=== PATIENT | female | born 1995 | race Caucasian/White ===

== ENCOUNTER 2017-08-06 06:29 | Emergency (ER) | payer BC ==
[~2017-08-06 06:29] MED LIST: CITA-145 PO
[2017-08-06] MEDS ORDERED: MINO100C27 PO (06:41)
--- NOTE | 2017-08-06 07:15 | ER Report ---
History and Physical Time Seen By MD: 06:45 Hx. of Stated Complaint: PT REPORTS LOW ABDOMINAL PAIN STARTING LATE LAST NIGHT, BRIGHT RED BLOOD IN LOOSE STOOLS X2 HPI/ROS CHIEF COMPLAINT: Lower abdominal pain rectal bleeding HISTORY OF PRESENT ILLNESS: Otherwise healthy 22-year-old female in no medication stated that last evening she noted there was some redness in her stool with associated abdominal cramping she had no vomiting pain is generally in the lower abdominal area no recent travel no recent new foods no recent exposure to foreign pathogens that she is aware of. Patient states that she went to bed booklets when he had a 2nd episode was some blood-tinged stool as well on arrival to the emergency department she is completely asymptomatic she is denying abdominal pain no urinary bladder bowel incontinence and numbness of subtle paresthesias patient denies any recent surgical procedures patient has no significant history only takes benzodiazepines for associated depression otherwise unremarkable past medical history REVIEW OF SYSTEMS: Respiratory: No cough, no dyspnea. Cardiovascular: No chest pain, no palpitations. Gastrointestinal: Abdominal cramping with associated blood in the stool Musculoskeletal: No back pain. Remainder of the 14 system rev: Yes Allergies: Coded Allergies: No Known Drug Allergies (Unverified , 04/13/15) Home Meds Reported Medications Minocycline Hcl (MINOCYCLINE HCL) 100 Mg Capsule, 100 MG PO BID, CAPSULE 08/06/17 Citalopram Hydrobromide (CITALOPRAM HBR) 20 Mg Tablet, 10 MG PO QDAY, #5 TAB 04/03/15 Reviewed Nurses Notes: Yes Old Medical Records Reviewed: Yes Hx Smoking: No Smoking Status: Never Smoker Exposure to Second Hand Smoke?: No Hx Substance Use Disorder: No Hx Alcohol Use: Yes (1X WEEK) Constitutional Vital Sign - Last 24 Hours 08/06/17 06:34 Temp 98.4 Pulse 81 Resp 16 B/P (MAP) 156/91 Pulse Ox 94 O2 Delivery Room Air Physical Exam General Appearance: The patient is alert, has no immediate need for airway protection and no current signs of toxicity. [ ] Eyes: Pupils equal and round no injection. Respiratory: Chest is non tender, lungs are clear to auscultation. Cardiac: regular rate and rhythm [ ] Gastrointestinal: Abdomen is soft and non tender, no masses, bowel sounds normal. Musculoskeletal: Neck: Neck is supple and non tender. Extremities have full range of motion and are non tender. Skin: No rashes or lesions. Rectal exam no sign of fissures no sign of blood in or around the rectal area negative on pulmonary examination Hemoccult sent DIFFERENTIAL DIAGNOSIS: After history and physical exam differential diagnosis was considered for enteritis gastroenteritis viral enteritis Medical Decision Making Data Points Result Diagram: 08/06/17 0642 08/06/17 0642 Laboratory Hematology Test 08/06/17 06:36 08/06/17 06:42 08/06/17 07:08 Urine Color Yellow Urine Clarity Slightly-cloudy Urine pH 5.0 pH (4.8-9.5) Urine Specific [place] 1.019 Urine Protein Negative mg/dL (NEGATIVE) Urine Glucose (UA) Negative mg/dL (NEGATIVE) Urine Ketones Negative mg/dL (NEGATIVE) Urine Blood Moderate (NEGATIVE) Urine Nitrite Negative (NEGATIVE) Urine Bilirubin Negative (NEGATIVE) Urine Urobilinogen Negative mg/dL (0.2-1.9) Urine Leukocyte Esterase Trace (NEGATIVE) Urine RBC 1 /HPF (0-2/HPF) Urine WBC 7 /HPF (0-5/HPF) Urine Squamous Epithelial Cells Many /LPF (</=FEW) Urine Transitional Epithelial Cells Few /LPF (NONE-FEW) Urine Bacteria Moderate /HPF (NONE-FEW) Urine Mucus Few /HPF (NONE-FEW) Red Blood Count 5.76 M/uL (4.17-5.56) Mean Corpuscular Volume 84.0 fL (80.0-96.0) Mean Corpuscular Hemoglobin 29.1 pg (26.0-33.0) Mean Corpuscular Hemoglobin Concent 34.6 g/dL (32.0-36.0) Red Cell Distribution Width 13.5 % (11.5-14.5) Mean Platelet Volume 7.1 fL (7.2-11.1) Neutrophils (%) (Auto) 74.1 % (39.4-72.5) Lymphocytes (%) (Auto) 14.4 % (17.6-49.6) Monocytes (%) (Auto) 8.4 % (4.1-12.4) Eosinophils (%) (Auto) 2.4 % (0.4-6.7) Basophils (%) (Auto) 0.7 % (0.3-1.4) Nucleated RBC Relative Count (auto) 0.1 /100WBC Neutrophils # (Auto) 6.0 K/uL (2.0-7.4) Lymphocytes # (Auto) 1.2 K/uL (1.3-3.6) Monocytes # (Auto) 0.7 K/uL (0.3-1.0) Eosinophils # (Auto) 0.2 K/uL (0.0-0.5) Basophils # (Auto) 0.1 K/uL (0.0-0.1) Nucleated RBC Absolute Count (auto) 0.01 K/uL Prothrombin Time 13.8 seconds (12.0-14.4) Prothromb Time International Ratio 1.06 Sodium Level 138 mmol/L (137-145) Potassium Level 3.7 mmol/L (3.5-5.0) Chloride Level 105 mmol/L (98-107) Carbon Dioxide Level 21 mmol/L (22-31) Blood Urea Nitrogen 10 mg/dl (7-18) Creatinine 0.80 mg/dl (0.52-1.04) Glomerular Filtration Rate Calc > 60.0 Random Glucose 100 mg/dl (75-110) Calcium Level 9.0 mg/dl (8.4-10.2) Total Bilirubin 1.0 mg/dl (0.2-1.3) Aspartate Amino Transf (AST/SGOT) 49 U/L (0-35) Alanine Aminotransferase (ALT/SGPT) 34 U/L (0-56) Alkaline Phosphatase 65 U/L (0-126) Total Protein 6.5 gm/dl (6.3-8.2) Albumin 3.9 g/dl (3.5-5.0) Serum Alcohol < 10 mg/dl Stool Occult Blood (IFOB) Negative (NEGATIVE) Chemistry Test 08/06/17 06:36 08/06/17 06:42 08/06/17 07:08 Urine Color Yellow Urine Clarity Slightly-cloudy Urine pH 5.0 pH (4.8-9.5) Urine Specific [place] 1.019 Urine Protein Negative mg/dL (NEGATIVE) Urine Glucose (UA) Negative mg/dL (NEGATIVE) Urine Ketones Negative mg/dL (NEGATIVE) Urine Blood Moderate (NEGATIVE) Urine Nitrite Negative (NEGATIVE) Urine Bilirubin Negative (NEGATIVE) Urine Urobilinogen Negative mg/dL (0.2-1.9) Urine Leukocyte Esterase Trace (NEGATIVE) Urine RBC 1 /HPF (0-2/HPF) Urine WBC 7 /HPF (0-5/HPF) Urine Squamous Epithelial Cells Many /LPF (</=FEW) Urine Transitional Epithelial Cells Few /LPF (NONE-FEW) Urine Bacteria Moderate /HPF (NONE-FEW) Urine Mucus Few /HPF (NONE-FEW) White Blood Count 8.1 k/uL (4.5-11.0) Red Blood Count 5.76 M/uL (4.17-5.56) Hemoglobin 16.7 g/dL (12.0-16.0) Hematocrit 48.4 % (34.0-47.0) Mean Corpuscular Volume 84.0 fL (80.0-96.0) Mean Corpuscular Hemoglobin 29.1 pg (26.0-33.0) Mean Corpuscular Hemoglobin Concent 34.6 g/dL (32.0-36.0) Red Cell Distribution Width 13.5 % (11.5-14.5) Platelet Count 362 K/uL (150-450) Mean Platelet Volume 7.1 fL (7.2-11.1) Neutrophils (%) (Auto) 74.1 % (39.4-72.5) Lymphocytes (%) (Auto) 14.4 % (17.6-49.6) Monocytes (%) (Auto) 8.4 % (4.1-12.4) Eosinophils (%) (Auto) 2.4 % (0.4-6.7) Basophils (%) (Auto) 0.7 % (0.3-1.4) Nucleated RBC Relative Count (auto) 0.1 /100WBC Neutrophils # (Auto) 6.0 K/uL (2.0-7.4) Lymphocytes # (Auto) 1.2 K/uL (1.3-3.6) Monocytes # (Auto) 0.7 K/uL (0.3-1.0) Eosinophils # (Auto) 0.2 K/uL (0.0-0.5) Basophils # (Auto) 0.1 K/uL (0.0-0.1) Nucleated RBC Absolute Count (auto) 0.01 K/uL Prothrombin Time 13.8 seconds (12.0-14.4) Prothromb Time International Ratio 1.06 Glomerular Filtration Rate Calc > 60.0 Calcium Level 9.0 mg/dl (8.4-10.2) Total Bilirubin 1.0 mg/dl (0.2-1.3) Aspartate Amino Transf (AST/SGOT) 49 U/L (0-35) Alanine Aminotransferase (ALT/SGPT) 34 U/L (0-56) Alkaline Phosphatase 65 U/L (0-126) Total Protein 6.5 gm/dl (6.3-8.2) Albumin 3.9 g/dl (3.5-5.0) Serum Alcohol < 10 mg/dl Stool Occult Blood (IFOB) Negative (NEGATIVE) Coagulation Test 08/06/17 06:42 Prothrombin Time 13.8 seconds Prothromb Time International Ratio 1.06 Toxicology Test 08/06/17 06:42 Serum Alcohol < 10 mg/dl Urinalysis Test 08/06/17 06:36 Urine Color Yellow Urine Clarity Slightly-cloudy Urine pH 5.0 pH (4.8-9.5) Urine Specific [place] 1.019 Urine Protein Negative mg/dL (NEGATIVE) Urine Glucose (UA) Negative mg/dL (NEGATIVE) Urine Ketones Negative mg/dL (NEGATIVE) Urine Blood Moderate (NEGATIVE) Urine Nitrite Negative (NEGATIVE) Urine Bilirubin Negative (NEGATIVE) Urine Urobilinogen Negative mg/dL (0.2-1.9) Urine Leukocyte Esterase Trace (NEGATIVE) Urine RBC 1 /HPF (0-2/HPF) Urine WBC 7 /HPF (0-5/HPF) Urine Squamous Epithelial Cells Many /LPF (</=FEW) Urine Transitional Epithelial Cells Few /LPF (NONE-FEW) Urine Bacteria Moderate /HPF (NONE-FEW) Urine Mucus Few /HPF (NONE-FEW) ED Course/Re-evaluation ED Course 2 female comes in with vague nonspecific abdominal cramping and reported blood in her stool. Patient's rectal exam was negative for occult blood and negative for Hemoccult her legs do show slight bump in her neutrophils a normal white count which is indicative of most likely some type of an infectious etiology which could be the precipitating factor of the rectal bleeding will start her on Flagyl today. Rest of her labs showed a slight bump in her AST over a LT ratio alcohol was negative most likely again consistent with a probable infectious etiology. Physical exam is otherwise benign rest of her labs were relatively unremarkable patient be diagnosed again with an enteritis put on Flagyl and follow up with primary care Decision to Disposition Date: Aug 06, 2017 Decision to Disposition Time: 08:03 Depart Departure Latest Vital Signs Vital Signs Date Time Temp Pulse Resp B/P (MAP) Pulse Ox O2 Delivery O2 Flow Rate FiO2 08/06/17 06:34 98.4 81 16 156/91 94 Room Air Impression: Primary Impression: Enteritis Condition: Improved Disposition: HOME OR SELF-CARE Referrals: [facility] 5 Days New Scripts Metronidazole (FLAGYL) 500 Mg Tablet 500 MG PO DIRECTED for 7 Days, #14 TAB Prov: BATOOL RUTLEDGE MD 08/06/17 Patient Instructions: Enteritis (DC) BATOOL RUTLEDGE MD Aug 06, 2017 07:15
[2017-08-06 07:36] LABS: INR 1.06
[2017-08-06 07:47] LABS: PLATELET COUNT, AUTOMATED 362 K/uL (150-450)
[2017-08-06] MEDS ORDERED: METR-1 PO (08:05)
[2017-08-06 08:07] VITALS: BP 124/75
== END 2017-08-06 08:12 | disposition home or self-care (01) ==
LOC: ER 07:03
DX: K52.9 Noninfective gastroenteritis and colitis, unspecified (principal)
CPT/HCPCS: 80320; 81001; 82040; 82247; 82274; 82310; 82374; 82435; 82565; 82947; 84075; 84132; 84155; 84295; 84450; 84460; 84520; 85025; 85610; 85730; 99282